=== PATIENT | female | born 1965 | race Caucasian/White ===

== ENCOUNTER 2024-02-26 10:06 | Day surgery (SDC) | payer OTHER ==
[2024-02-25 11:02] LABS: Absolute Basophils 0.1 K/uL (0-0.5); Absolute Eosinophils 0.1 K/uL (0-0.5); Absolute Monocytes 0.4 K/uL (0.1-1.3); Absolute Neutrophil 4.3 K/uL (1.8-8.0); Basophils % 0.9 % (0-1.3); Eosinophils % 1.7 % (0-4.4); Hemoglobin 13.2 g/dL (12.0-15.0); Lymphocytes % 29.4 % (15.3-44.8); MCH 28.7 pg (27.0-35.0); MCHC 33.1 g/dL (32.0-36.0); MCV 86.7 fL (80-100); MPV 7.2 fL (7.6-11.3); Platelets 269 thou/uL (152-406); RBC Red Blood Cell Count 4.61 M/uL (3.86-4.86); Red Cell Distribution Width 13.6 % (12.1-15.2)
[2024-02-25 11:15] LABS: Anion Gap 6.3 mEq/L (5.0-15.0); Potassium 4.3 mEq/L (3.5-5.1)
[2024-02-26] MEDS: Ringers Lactate 1,000 ML IV ONE (10:26)
[2024-02-26] MEDS ORDERED: LIDOCAINE 1% MPF 5 ML VIAL ONE (11:31)
[2024-02-26] MEDS ORDERED: propofoL 200 MG/20 ML VIAL IV ONE (11:31)
--- NOTE | 2024-02-26 12:12 | EKG ---
Test Date: 2024-02-25 Test Time: 10:42:06 Emergency Room Technician: STEPHON MEASUREMENT RESULTS: Intervals: Rate: 58 MS: 156 QRSD: 76 QT: 404 QTc: 396 Lund: P: 74 MS: 156 QRS: 55 T: 61 INTERPRETIVE STATEMENTS: Sinus bradycardia Low voltage QRS Borderline ECG No previous ECG available for comparison Electronically Signed On 02-26-24 12:12:17 CDT by Jose Miguel Marcos
[2024-02-26 12:41] VITALS: O2SAT 100
[2024-02-26 13:00] VITALS: BP 146/80; TEMP 97.4
== END 2024-02-26 12:50 | disposition home or self-care (01) ==
LOC: OR 10:06
PROVIDERS: ATTEND Surgery
PROC: 0DBN8ZX Excision of Sigmoid Colon, Via Natural or Artificial Opening Endoscopic, Diagnostic (ICD-10-PCS; principal; 2024-02-26 12:00)
DX: R19.5 Other fecal abnormalities (principal); Z86.010 Personal history of colon polyps; K64.8 Other hemorrhoids; D36.9 Benign neoplasm, unspecified site
CPT/HCPCS: 93005; 85025; 80048; 36415; 88305; 45385; J2704; J2001; J7120

== ENCOUNTER 2024-07-07 10:55 | Day surgery (SDC) | payer OTHER ==
[2024-07-07] MEDS ORDERED: Ringers Lactate 1,000 ML IV ONE (11:37)
[2024-07-07 11:56] LABS: Anion Gap 6.6 mEq/L (5.0-15.0); Potassium 4.6 mEq/L (3.5-5.1)
[2024-07-07 12:14] LABS: Absolute Basophils 0.1 K/uL (0-0.5); Absolute Eosinophils 0.2 K/uL (0-0.5); Absolute Lymphocytes (CBC) 2.1 K/uL (0.7-4.9); Absolute Monocytes 0.4 K/uL (0.1-1.3); Absolute Neutrophil 3.9 K/uL (1.8-8.0); Basophils % 0.9 % (0-1.3); Eosinophils % 2.9 % (0-4.4); Hemoglobin 12.8 g/dL (12.0-15.0); Lymphocytes % 31.8 % (15.3-44.8); MCHC 33.6 g/dL (32.0-36.0); MCV 86.1 fL (80-100); MPV 8.1 fL (7.6-11.3); Monocytes % 6.3 % (3.3-12.3); Neutrophils % 58.1 % (41.7-73.7); Nucleated Red Blood Cells % 0.2 % (0-0); Platelets 297 thou/uL (152-406); RBC Red Blood Cell Count 4.42 M/uL (3.86-4.86); Red Cell Distribution Width 12.9 % (12.1-15.2)
[2024-07-07] MEDS ORDERED: LIDOCAINE HCL/EPINEPHRINE 20 ML MDV ONE (13:30)
[2024-07-07] MEDS ORDERED: FENTANYL CITR 100 MCG/2 ML ONE (13:36)
[2024-07-07] MEDS ORDERED: propofoL 200 MG/20 ML VIAL IV ONE (13:36)
[2024-07-07] MEDS ORDERED: MIDAZOLAM HCL 2 MG/2 ML INJ ONE (13:37)
[2024-07-07] MEDS ORDERED: LIDOCAINE 1% MPF 5 ML VIAL ONE (13:38)
[2024-07-07] MEDS: CEFAZOLIN SODIUM 2 GM/VIAL ONE (14:22)
[2024-07-07] MEDS ORDERED: ONDANSETRON 4 MG/2 ML VIAL ONE (14:35)
[2024-07-07] MEDS: LIDOCAINE 1% 20 ML MDV ONE (14:45)
--- NOTE | 2024-07-07 14:45 | P.OP ---
Preoperative diagnosis: LEFT Middle Tip of Finger Foreign Body Postoperative diagnosis: LEFT Middle Tip of Finger Foreign Body Primary procedure: Excision of LEFT Middle Tip of Finger Foreign Body Anesthesia: GETA + 1% lidocaine plain Estimated blood loss: <1cc Specimen: LEFT middle tip of finger Findings: ~ 0.2cm LEFT Middle Tip of Finger lesion Complications: None Transferred to: Recovery Room Condition: Good
[2024-07-07] MEDS: HYDROMORPHONE HCL 1 MG/ML INJ ONE (15:15)
[2024-07-07 15:38] VITALS: O2SAT 100
[2024-07-07 16:24] VITALS: TEMP 97.2
[2024-07-07 16:25] VITALS: BP 109/67
--- NOTE | 2024-07-07 18:42 | OP ---
Date of Procedure: 07/07/2024 Surgeon: Chau Hart MD, Preoperative Diagnosis: Left middle tip of finger foreign body. Postoperative Diagnosis: Left middle tip of finger foreign body. Procedure Performed: Excision of left middle finger tip foreign body. Anesthesia: General endotracheal plus 1% lidocaine plain for digital block. Specimen: Left middle finger tip. Findings: 0.2 cm left middle finger tip lesion. Complications: None. Disposition: Patient transferred to recovery room in good condition. Procedure In Detail: After informed consent was obtained, the patient was brought into the operating room, prepped and draped in the usual sterile fashion, after adequate anesthesia was achieved. Digi carlitos block was performed with 1% lidocaine plain. At this point, I used a 15 blade to make a curvilin ear incision around an area on the tip of the finger that had an indentation consistent with a foreig n body injury. I took this down into the tissue just adjacent to the pulp of the finger, and caprice person removed this, sent it off for pathologic examination. The area was copiously irrigated. Hemosta sis was achieved with minimal electrocautery and the wound was then closed with interrupted 3-0 nylon sutures and a sterile dressing placed over top. The patient tolerated the procedure well without in cident or complication, transferred to PACU in good condition. All counts were correct at the end of the case. LEENA/KRUNAL Voice ID: [id number] Report ID: [id number]
== END 2024-07-07 16:17 | disposition home or self-care (01) ==
LOC: OR 10:55
PROVIDERS: ATTEND Surgery
PROC: 0JCK0ZZ Extirpation of Matter from Left Hand Subcutaneous Tissue and Fascia, Open Approach (ICD-10-PCS; principal; 2024-07-07 14:00)
DX: S60.453A Superficial foreign body of left middle finger, initial encounter (principal); X58.XXXA Exposure to other specified factors, initial encounter; K21.9 Gastro-esophageal reflux disease without esophagitis; Z86.19 Personal history of other infectious and parasitic diseases
CPT/HCPCS: 85025; 80048; 36415; 10120; J2704; J2001 ×2; J2250; J3010; J1170; J2405; J7120; 88304